=== PATIENT | female | born 2000 | race Caucasian/White ===

== ENCOUNTER 2025-02-24 10:32 | Emergency (ER) | payer OTHER, SELFPAY ==
--- NOTE | 2025-02-24 10:54 | EDPHYS ---
Physician Documentation [facility] Name: Carlotta Leger Age: 24 yrs Sex: Female : 2000 Arrival Date: 02/24/2025 Time: 10:32 Bed IW1 Private MD: ED Physician Pernell Trujillo HPI: 02/24 11:01 This 24 yrs old Female presents to ER via Ambulatory with complaints of Sore Throat. sb4 11:01 Patient reports a fever and bodyaches that began 2 days ago. She states that her fever sb4 resolved with TheraFlu but now she has a sore throat and painful swallowing. Denies any other symptoms -no cough, congestion, ear pain, vomiting. 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 - Infectious Disease History:: Denies. - Social history:: Smoking status: Patient denies any tobacco usage or history of. ROS: 11:02 Cardiovascular: Negative for chest pain, palpitations, and edema, sb4 11:02 Constitutional: Positive for body aches, fever, 11:02 ENT: Positive for sore throat, 11:02 All other systems are negative, Exam: 11:02 Constitutional: This is a well developed, well nourished patient who is awake, alert, sb4 and in no acute distress. Head/Face: Normocephalic, atraumatic. Eyes: Extra-ocular motions intact. Periorbital areas with no swelling, redness, or edema. Respiratory: No increased work of breathing, no retractions or nasal flaring. Skin: Warm, dry with normal turgor. Normal color with no rashes, no lesions, and no evidence of cellulitis. 11:02 ENT: Posterior pharynx: Tonsils: bilaterally enlarged, with erythema, no exudate, no ulcerations, Vital Signs: 10:46 BP 113 / 78; Pulse 90; Resp 16; Temp 98.6; Pulse Ox 100% on R/A; Weight 86.18 kg; ll1 Height 5 ft. 3 in. ; Pain 7/10; 10:46 Body Mass Index 33.66 (86.18 kg, 160.02 cm) ll1 10:46 Pain Scale: Adult ll1 MDM: 10:39 Medical Screening Exam initiated sb4 11:02 Differential diagnosis: group A strep tonsillitis, influenza, pharyngitis, tonsillitis, sb4 upper respiratory infection, uvulitis, viral syndrome. Data reviewed: vital signs, nurses notes, and as a result, I will discharge patient. Test considered but Not performed: Labs: strep swab, covid swab, flu swab - not indicated, clinical diagnosis of strep throat. Counseling: I had a detailed discussion with the patient and/or guardian regarding the historical points, exam findings, and any diagnostic results supporting the discharge/admit diagnosis, the need for outpatient follow up, for definitive care, to return to the emergency department if symptoms worsen or persist or if there are any questions or concerns that arise at home. Administered Medications: No medications were administered Disposition: 15:14 I was immediately available on-site in the Emergency Department for consultation in the wv3 care of the patient. Disposition Summary: 02/24/25 10:53 Discharge Ordered Notes: Location: Home sb4 Problem: new sb4 Symptoms: are unchanged sb4 Condition: Stable sb4 Diagnosis - Streptococcal pharyngitis sb4 Followup: sb4 - With: Emergency Department - When: As needed - Reason: Trouble breathing, Worsening of condition Discharge Instructions: - Discharge Summary Sheet sb4 - Strep Throat, Adult, [id number] sb4 Forms: - Work release form bd - Antibiotic Education sb4 - Patient Portal Instructions sb4 - Leadership Thank You Letter sb4 Prescriptions: - Amoxicillin 875 mg Oral Tablet - take 1 tablet ORAL route every 12 hours for 10 days; 20 tablet; Refills: 0, sb4 Product Selection Permitted Signatures: Danny Gallegos RN RN ll1 Pernell Trujillo DO DO ms3 Charlene Hinkle PA-C PA-C sb4
--- NOTE | 2025-02-24 10:54 | ER ---
Nurse's Notes [facility] Name: Carlotta Leger Age: 24 yrs Sex: Female : 2000 Arrival Date: 02/24/2025 Time: 10:32 Bed IW1 Private MD: Diagnosis: Streptococcal pharyngitis Presentation: 02/24 10:46 Chief complaint: Patient states: she had a fever on Sunday and Sunday, then began ll1 having a sore throat yesterday. Coronavirus screen: fever, sore throat. Ebola Screen: No symptoms or risks identified at this time. Initial Sepsis Screen: Does the patient meet any 2 criteria? No. Patient's initial sepsis screen is negative. Does the patient have a suspected source of infection? No. Patient's initial sepsis screen is negative. Risk Assessment: Do you want to hurt yourself or someone else? Patient reports no desire to harm self or others. Onset of symptoms was February 22, 2025. 10:46 Method Of Arrival: Ambulatory ll1 10:46 Acuity: SADA 4 ll1 Triage Assessment: 10:48 General: Appears in no apparent distress. uncomfortable, Behavior is calm, cooperative, ll1 appropriate for age. Pain: Complains of pain in throat. EENT: Throat is reddened Reports difficulty swallowing pain when swallowing. Neuro: No deficits noted. Cardiovascular: No deficits noted. Respiratory: No deficits noted. GI: No deficits noted. No signs and/or symptoms were reported involving the gastrointestinal system. : No deficits noted. No signs and/or symptoms were reported regarding the genitourinary system. Derm: No deficits noted. No signs and/or symptoms reported regarding the dermatologic system. Musculoskeletal: No deficits noted. No signs and/or symptoms reported regarding the musculoskeletal system. 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 - Infectious Disease History:: Denies. - Social history:: Smoking status: Patient denies any tobacco usage or history of. Screenin:52 [facility] ED Fall Risk Assessment (Adult) History of falling in the last 3 months, ll1 including since admission No falls in past 3 months (0 pts) Confusion or Disorientation No (0 pts) Intoxicated or Sedated No (0 pts) Impaired Gait No (0 pts) Mobility Assist Device Used No (0 pt) Altered Elimination No (0 pt) Score/Fall Risk Level 0 - 2 = Low Risk Oriented to surroundings, Maintained a safe environment, Educated pt \T\ family on fall prevention, incl call for assistance when getting out of bed, Assessed \T\ reinforced patient's understanding of fall precautions. Abuse screen: Denies threats or abuse. Denies injuries from another. Nutritional screening: No deficits noted. Tuberculosis screening: No symptoms or risk factors identified. Assessment: 10:52 Reassessment: see triage assessment. ll1 10:55 Respiratory: Airway is patent Respiratory effort is even, unlabored, Breath sounds are ll1 clear. Vital Signs: 10:46 BP 113 / 78; Pulse 90; Resp 16; Temp 98.6; Pulse Ox 100% on R/A; Weight 86.18 kg; ll1 Height 5 ft. 3 in. ; Pain 7/10; 10:46 Body Mass Index 33.66 (86.18 kg, 160.02 cm) ll1 10:46 Pain Scale: Adult ll1 ED Course: 10:38 Patient arrived in ED. im 10:39 Charlene Hinkle PA-C is PHCP. sb4 10:39 Pernell Trujillo DO is Attending Physician. sb4 10:48 Triage completed. ll1 10:48 Arm band placed on right wrist. ll1 10:52 Patient has correct armband on for positive identification. Provided Education on: d/c ll1 education. 10:52 No provider procedures requiring assistance completed. Patient did not have IV access ll1 during this emergency room visit. Administered Medications: No medications were administered Medication: 10:52 VIS not applicable for this client. ll1 Outcome: 10:52 Discharged to home ambulatory, ll1 10:52 Condition: stable 10:52 Discharge instructions given to patient, Instructed on discharge instructions, follow up and referral plans. medication usage, Demonstrated understanding of instructions, follow-up care, medications, Prescriptions given X 1, 10:53 Discharge ordered by MD. sb4 10:55 Patient left the ED. ll1 Signatures: Danny Gallegos RN RN ll1 Charlene Hinkle PA-C PA-C sb4 [place] im
[2025-02-24 17:13] VITALS: BP 113/78; TEMP 98.6; O2SAT 100
== END 2025-02-24 10:55 | disposition home or self-care (01) ==
LOC: ER 10:32
DX: J02.0 Streptococcal pharyngitis (principal)
CPT/HCPCS: 99283